=== PATIENT | male | born 1980 | race African-American/Black ===

== ENCOUNTER 2024-06-30 12:23 | Emergency (ER) | payer OTHER ==
[~2024-06-30] VITALS: Ht 190.5 cm; Wt 102.1 kg
[2024-06-30 13:08] LABS: BASOPHILS ABSOLUTE AUTO 0.03 K/mm3 (0.00-0.23); BASOPHILS PERCENT AUTO 1 % (0-2); EOSINOPHILS ABSOLUTE AUTO 0.05 K/mm3 (0.00-0.68); EOSINOPHILS PERCENT AUTO 1 % (0-6); Hematocrit 46.1 % (37.0-53.0); Hemoglobin 15.3 g/dL (13.5-17.5); IMMATURE GRAN ABSOLUTE AUTO 0.03 K/mm3 (0.00-0.10); IMMATURE GRAN PERCENT AUTO 1 % (0-1); LYMPHOCYTES PERCENT AUTO 50 % (21-46); MONOCYTES ABSOLUTE AUTO 0.53 K/mm3 (0.16-1.47); MONOCYTES PERCENT AUTO 10 % (4-13); Mean Corpuscular HGB 26.7 pg (26.0-34.0); Mean Corpuscular HGB Conc 33.2 g/dL (31.5-36.5); Mean Corpuscular Volume 80 fL (80-100); Mean Platelet Volume 10.1 fL (9.1-12.4); NEUTROPHILS ABSOLUTE AUTO 1.98 K/mm3 (1.96-9.15); NEUTROPHILS PERCENT AUTO 38 % (41-73); Platelet Count 242 K/mm3 (150-400); RDW Coefficient Variation 13.7 % (11.7-14.2); RDW Standard Deviation 39.8 fL (35.1-46.3); Red Blood Cell Count 5.74 M/mm3 (4.30-5.90); White Blood Cell Count 5.22 K/mm3 (4.00-11.30)
[2024-06-30 13:30] LABS: Albumin, Blood 4.1 g/dL (3.4-5.0); Albumin/Globulin Ratio 1.1 (0.8-1.8); Bilirubin, Total 0.5 mg/dL (0.1-1.0); Bun/Creatinine Ratio 13.2 (12.0-20.0); Calcium, Blood 9.5 mg/dL (8.5-10.1); Creatinine, Blood 1.21 mg/dL (0.60-1.20); Globulin, Blood 3.8 g/dL (2.2-4.0); Potassium, Blood 3.6 mmol/L (3.5-5.5); Total Protein, Blood 7.9 g/dL (6.4-8.2)
[2024-06-30] MEDS ORDERED: HydroCHLOROthiazide 25 mg Tab PO ONE (14:10)
[2024-06-30] MEDS ORDERED: LOSARTAN-HCTZ1 EAC6 PO (14:19)
== END 2024-06-30 14:27 | disposition home or self-care (01) ==
LOC: ER 12:23
PROVIDERS: Physician Assistant
DX: I10 Essential (primary) hypertension (principal)
CPT/HCPCS: 80053; 85025; 93005; 93010; 99283-25; A9270